=== PATIENT | female | born 1970 | race Hispanic/Latino ===

== ENCOUNTER 2017-08-28 20:25 | Emergency (ER) | payer OTHER ==
[~2017-08-28] VITALS: Ht 137.2 cm; Wt 57.6 kg
[2017-08-28] MEDS ORDERED: IBUPROFEN 600 MG TAB PO STA (21:10)
[2017-08-28] MEDS ORDERED: ALBUTEROL/IPRATROPIUM 3 ML NEB NEB ONE (21:15)
[2017-08-28] MEDS ORDERED: SIMVASTATIN20 MG PO (21:44)
[2017-08-28] MEDS ORDERED: LEVOCETIRIZINE D5 MG (21:44)
[2017-08-28] MEDS ORDERED: METFORMIN HCL500 MG PO (21:44)
[2017-08-28] MEDS ORDERED: RANITIDINE HCL150 M1 (21:44)
[2017-08-28] MEDS ORDERED: GLIMEPIRIDE2 MG PO (21:44)
[2017-08-28] MEDS ORDERED: LOSARTAN POTASS25 MG PO (21:44)
[2017-08-28] MEDS ORDERED: ONGLYZA5 MG PO (21:44)
== END 2017-08-28 22:02 | disposition home or self-care (01) ==
LOC: FSED 20:25
DX: R05 Cough (principal); J32.9 Chronic sinusitis, unspecified; J00 Acute nasopharyngitis [common cold]; J04.0 Acute laryngitis; J98.01 Acute bronchospasm; E78.5 Hyperlipidemia, unspecified
CPT/HCPCS: 99283

== ENCOUNTER 2018-07-14 19:35 | Emergency (ER) | payer OTHER ==
[~2018-07-14] VITALS: Ht 139.7 cm; Wt 59.4 kg
[~2018-07-14 19:35] MED LIST: GLIMEPIRIDE2 MG PO; LEVOCETIRIZINE D5 MG; LOSARTAN POTASS25 MG PO; METFORMIN HCL500 MG PO; ONGLYZA5 MG PO; RANITIDINE HCL150 M1; SIMVASTATIN20 MG PO
--- OUTSIDE RECORDS SUMMARY | 2018-07-14 19:38 | XMS REPORT | CCD ---
Author Author Auto Generated Organization [facility] Address Unknown Phone Unavailable Care Team Providers Care Party Plan Sales Director Name Role Phone Fabian Ruiz CP Allergies, Adverse Reactions, Alerts Substance Reaction Status NKDA Active Medications Medication Instructions Start Date End Date Status [place] 5/325 oral 1 tab, Route: PO, Drug Form: TAB, 01/01/2012 01/01/2012 Completed tablet ONCE, Start date: 01/01/12 21:34:00, Stop date: 01/01/12 21:34:00 Vital Signs Most recent to oldest [Reference Range]: 1 Height 139.70 cm (01/01/2012 21:05:00) Weight 60.000 kg (01/01/2012 21:05:00)
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
--- OUTSIDE RECORDS SUMMARY | 2018-07-14 19:38 | XMS REPORT | Summary of Care ---
Author Author [facility] Address Unknown Phone Unavailable Encounter HQ Nubiantr_alikhari(FIN) [id number] Date(s): 09/16/17 - 09/17/[address], [address] [place] [address]- [phone] Vital Signs No data available for this section Problem List No data available for this section Allergies, Adverse Reactions, Alerts Substance Reaction Severity Status NKDA Active Medications FREESTYLE LITE TEST STRIP See Instructions, # 50 strip, Refill(s) 3, TEST BLOOD SUGAR ONCE DAILY, Pharmacy : [id number] Start Date: 09/18/17 Status: Ordered Results No data available for this section Immunizations No data available for this section Procedures Procedure Date Related Diagnosis Body Site Status section Completed Removal of gallbladder Completed Social History Social History Type Response Smoking Status Never smoker; Exposure to Tobacco Smoke None; Cigarette Smoking Last 365 Days No; Reg Smoking Cessation Counseling No entered on: 08/25/16 Assessment and Plan No data available for this section
[2018-07-14] MEDS ORDERED: KETOROLAC TROMETHAMINE 30 MG/ML VIAL IM ONE (21:15)
== END 2018-07-14 22:06 | disposition home or self-care (01) ==
LOC: FSED 19:35
DX: M25.512 Pain in left shoulder (principal); S43.422A Sprain of left rotator cuff capsule, initial encounter; X50.1XXA Overexertion from prolonged static or awkward postures, initial encounter; Y92.008 Other place in unspecified non-institutional (private) residence as the place of occurrence of the external cause; E11.9 Type 2 diabetes mellitus without complications
CPT/HCPCS: 99282; J1885

== ENCOUNTER 2019-01-01 19:53 | Emergency (ER) | payer OTHER ==
[~2019-01-01] VITALS: Ht 139.7 cm; Wt 59.0 kg
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
--- OUTSIDE RECORDS SUMMARY | 2019-01-01 19:55 | XMS REPORT | Summary of Care ---
Author Author [facility] Address Unknown Phone Unavailable Encounter HQ Wilderr_chaitanya(FIN) [id number] Date(s): 10/03/18 - 10/04/18 [facility] [address] [place] [address] 7581- [phone] Vital Signs No data available for this section Problem List No data available for this section Allergies, Adverse Reactions, Alerts No Known Medication Allergies Medications FREESTYLE LITE TEST STRIP FREESTYLE LITE TEST STRIP, See Instructions, TEST BLOOD SUGAR ONCE DAILY, # 100 strip, Refill(s) , [facility]acy: [id number] Start Date: 10/03/18 Status: Ordered Results No data available for [...]
[2019-01-01] MEDS ORDERED: KETOROLAC TROMETHAMINE 30 MG/ML VIAL ONE (20:23)
[2019-01-01] MEDS ORDERED: ONDANSETRON HCL 4 MG ORAL DISINTEGRATING TAB ONE (20:23)
[2019-01-01] MEDS ORDERED: HYDROCODONE/APAP 5MG-325MG TAB ONE (20:24)
[2019-01-01] MEDS ORDERED: KETOROLAC TROMETHAMINE 60 MG/2 ML VIAL IM ONE (20:30)
[2019-01-01] MEDS ORDERED: HYDROCODONE/APAP 5MG-325MG TAB PO ONE (20:30)
[2019-01-01] MEDS ORDERED: ONDANSETRON HCL 4 MG ORAL DISINTEGRATING TAB PO ONE (20:30)
--- NOTE | 2019-01-01 22:01 | Diagnostic Imaging Report ---
Lumbar Spine Radiographs: 3 views HISTORY: Pain. Left-sided back pain started some left hip goes down to leg COMPARISON: None available. DISCUSSION: Some of the osseous structures are partially obscured by stool and bowel gas. There are five non-rib bearing lumbar vertebral bodies. The alignment of the spine is within normal limits. No displaced fracture or compression deformity is identified. The coccyx is slightly posteriorly aligned relative to the sacrum, may be a variant or possibly due to remote injury. Disc Spaces: The disc spaces are well maintained. Mild disc osteophytes. Facets: Hypertrophic sclerotic facet arthropathy in the lower lumbar spine, worse on the left. Degenerative changes and osteophytes in the sacroiliac joints, worst on the left. IMPRESSION: No acute radiographic abnormality. Degenerative changes in the lower lumbar spine and sacroiliac joints, worse on the left. Signed by: Dario Mejia DO on 01/01/2019 9:58 PM
[2019-01-01 22:46] VITALS: BP 144/84
== END 2019-01-01 21:38 | disposition home or self-care (01) ==
LOC: FSED 19:53
DX: M54.42 Lumbago with sciatica, left side (principal); M51.16 Intervertebral disc disorders with radiculopathy, lumbar region; G89.29 Other chronic pain; E11.9 Type 2 diabetes mellitus without complications; E78.5 Hyperlipidemia, unspecified
CPT/HCPCS: 72100; 81003; 96372; 99283; J1885 ×2; Q0162

== ENCOUNTER 2019-03-28 18:32 | Emergency (ER) | payer OTHER ==
[~2019-03-28] VITALS: Ht 139.7 cm; Wt 59.0 kg
--- OUTSIDE RECORDS SUMMARY | 2019-03-28 18:35 | XMS REPORT ---
Author Author [facility] Address Unknown Phone Unavailable Care Team Providers Care Six Horse Hitch Driver Name Role Phone Gulshan VIGIL Unavailable Unavailable Problems This patient has no known problems. Allergies, Adverse Reactions, Alerts This patient has no known allergies or adverse reactions. Medications This patient has no known medications. Results Test Description Test Time Test Comments Text Results Atomic Results Result Comments L SPINE 2-3 VEWS - HOPD 2019-01-01 21:52:00 [place] [address] Patient Name: STEVO LUGO MR #: [id number] : 1970 Age/Sex: 48/F Req #: [id number] [facility] Physician: Ordered by: NEHAL VIGIL MD Report #: [id number] Location: [facility] Room/Bed: Procedure: [id number] HOPD/L SPINE 2-3 VEWS - HOPD Exam Date: 01/01/19 Exam Time: 2039 REPORT STATUS: Signed Lumbar Spine Radiographs: 3 views HISTORY: Pain. Left-sided back pain started some left hip goes down to leg COMPARISON: None available. DISCUSSION: Some of the osseous structures are partially obscured by stool and bowel gas. There are five non-rib bearing lumbar vertebral bodies. The alignment of the spine is within normal limits. No displaced fracture or compression deformity is identified. The coccyx is slightly posteriorly aligned relative to the sacrum, may be a variant or possibly due to remote injury. Disc Spaces: The disc spaces are well maintained. Mild disc osteophytes. Facets: Hypertrophic sclerotic facet arthropathy in the lower lumbar spine, worse on the left. Degenerative changes and osteophytes in the sacroiliac joints, worst on the left. IMPRESSION: No acute radiographic abnormality. Degenerative changes in the lower lumbar spine and sacroiliac joints, worse on the left. Signed by: Dario Mejia DO on 01/01/2019 9:58 PM Dictated By: DARIO MEJIA DO 57 Transcribed By: USHA on 01/01/192157 COPY TO: NEHAL VIGIL MD
[2019-03-28] MEDS ORDERED: AZITHROMYCIN250 MG PO (19:33)
[2019-03-28] MEDS ORDERED: VENTOLIN HFA18 GM PO (19:33)
--- NOTE | 2019-03-28 20:10 | Diagnostic Imaging Report ---
Examination: Single AP view of the chest. COMPARISON: None. INDICATION: Cough DISCUSSION: Lines/tubes: None. Lungs: The lungs are well inflated and clear. No pneumonia or pulmonary edema. Pleura: No pleural effusion or pneumothorax. Heart and mediastinum: The heart and the mediastinum are unremarkable. Bones and soft tissues: No acute bony abnormalities. IMPRESSION: 1. No acute cardiopulmonary abnormalities. Signed by: Dr. Lucien Jha M.D. on 03/28/2019 8:06 PM
--- NOTE | 2019-03-28 20:11 | Diagnostic Imaging Report ---
Exam: Left foot 3 views History: Pain Comparison: None. Findings: No fracture or malalignment. Joint spaces preserved. Calcaneal enthesophytes. Impression: No acute osseous abnormality Signed by: Dr. Lucien Jha M.D. on 03/28/2019 8:07 PM
[2019-03-28 21:09] VITALS: BP 147/88
== END 2019-03-28 21:11 | disposition home or self-care (01) ==
LOC: FSED 18:32
DX: R05 Cough (principal); J20.9 Acute bronchitis, unspecified; M79.672 Pain in left foot; E11.9 Type 2 diabetes mellitus without complications
CPT/HCPCS: 36415; 71045; 80053; 82948; 85025; 85379; 93005; 99283

== ENCOUNTER 2019-12-02 20:06 | Emergency (ER) | payer OTHER ==
[~2019-12-02] VITALS: Ht 139.7 cm; Wt 59.0 kg
[~2019-12-02 20:06] MED LIST changes: +AZITHROMYCIN250 MG PO; +VENTOLIN HFA18 GM PO
[2019-12-02] MEDS ORDERED: ACETAMINOPHEN 325 MG TAB ONE (20:33)
[2019-12-02] MEDS ORDERED: ACETAMINOPHEN 325 MG TAB PO ONE (20:35)
[2019-12-02 21:03] LABS: ALANINE AMINOTRANSFERASE 38 IU/L (0-55); ALBUMIN/GLOBULIN RATIO 0.7 (0.8-2.0); ALKALINE PHOSPHATASE 94 IU/L (40-150); ANION GAP 17.5 mmol/L (8-16); BLOOD UREA NITROGEN 10 mg/dL (7-26); BUN/CREATININE RATIO 12 (6-25); CALCIUM 8.8 mg/dL (8.4-10.2); CARBON DIOXIDE 22 mmol/L (22-29); CHLORIDE 95 mmol/L (98-107); CREATINE KINASE 54 IU/L (29-168); CREATININE, SERUM 0.83 mg/dL (0.57-1.11); EST GLOMERULAR FILTRATION RATE > 60 ML/MIN (60-); GLUCOSE 299 mg/dL (74-118); POTASSIUM 3.5 mmol/L (3.5-5.1); SODIUM 131 mmol/L (136-145)
[2019-12-02 21:07] LABS: BASOPHILS % 0.2 % (0.0-1.0); HEMATOCRIT 36.7 % (34.2-44.1); HEMOGLOBIN 12.3 g/dL (12.0-16.0); LYMPHOCYTES # (AUTO) 1.1 (1.0-3.2); LYMPHOCYTES % 10.3 % (18.0-39.1); MEAN CORPUSCULAR HEMOGLOBIN 27.8 pg (28-32); MEAN CORPUSCULAR HGB CONC 33.5 g/dL (31-35); MEAN CORPUSCULAR VOLUME 82.8 fL (81-99); MONOCYTES # (AUTO) 0.4 (0.2-0.8); MONOCYTES % 3.7 % (4.4-11.3); NEUTROPHILS # (AUTO) 8.8 (2.1-6.9); NEUTROPHILS % 84.7 % (38.7-80.0); PLATELET COUNT 413 x10e3/uL (140-360); RED BLOOD COUNT 4.43 x10e6/uL (3.6-5.1); RED CELL DISTRIBUTION WIDTH 13.6 % (11.7-14.4)
--- NOTE | 2019-12-02 21:29 | Diagnostic Imaging Report ---
Examination: Single AP view of the chest. COMPARISON: AP chest 03/28/2019 INDICATION: Trouble breathing, COVID IMPRESSION: 1. Lines and Tubes: None 2. Lungs are mildly hypoinflated. Bilateral patchy interstitial and alveolar opacities likely representing multifocal pneumonia (including viral). No effusion. 3. Cardiomediastinal silhouette is normal. Pulmonary vasculature is normal. 4. No acute bony abnormalities. Signed by: Dr. Edmund Valdes M.D. on 12/02/2019 9:26 PM
--- NOTE | 2019-12-02 21:30 | Emergency Department Note ---
History of Present Illnes History of Present Illness Chief Complaint: COVID PUI History of Present Illness This is a 49 year old female arrives to ED with complaints of coughing or shortness of breath. Patient covid +. All of patient's extended family is covid positive with mother and sister hospitalized. Wildland Fire Fighter Required: No Onset (how long ago): day(s) Severity: mild Onset quality: gradual Timing of current episode: constant Progression: worsening Chronicity: new Context: Reports recent illness Relieving factors: none Past Medical/Family History Physician Review I have reviewed the patient's past medical and family history. Any updates have been documented here. Past Medical History Past Medical History: Diabetes, Migraines, Hyperlipedemia Other Medical History: hyperlipidemia migraine Past Surgical History: Cholecysctectomy, T&A, , Hernia Repair Other Surgery: BREAST CYST REMOVED Other Last Tetanus: unk Review of Systems Review of Systems Constitutional: Reports as per HPI, Reports diaphoresis, Reports fever EENTM: Reports no symptoms Cardiovascular: Reports no symptoms Respiratory: Reports as per HPI, Reports cough, Reports dyspnea Gastrointestinal: Reports no symptoms Genitourinary: Reports no symptoms Musculoskeletal: Reports no symptoms Integumentary: Reports no symptoms Neurological: Reports no symptoms Psychological: Reports no symptoms Endocrine: Reports no symptoms Hematological/Lymphatic: Reports no symptoms Review of other systems: All other systems negative Physical Exam Related Data Allergies: Coded Allergies: No Known Allergies (Unverified , 08/28/17) Vital signs reviewed: Yes Physical Exam CONSTITUTIONAL Constitutional: Present well-developed, Present well-nourished, Present obese, Present ill appearing HENT HENT: Present normocephalic, Present atraumatic, Present oropharynx clear/moist, Present nose normal HENT L/R: Present left ext ear normal, Present right ext ear normal EYES Eyes: Reports PERRL, Reports conjunctivae normal NECK Neck: Present ROM normal PULMONARY Pulmonary: Present effort normal, Present respiratory distress CARDIOVASCULAR Cardiovascular: Present regular rhythm, Present heart sounds normal, Present capillary refill normal, Present normal rate GASTROINTESTINAL Abdominal: Present soft, Present nontender, Present bowel sounds normal GENITOURINARY Genitourinary: Present exam deferred SKIN Skin: Present warm, Present dry MUSCULOSKELETAL Musculoskeletal: Present ROM normal NEUROLOGICAL Neurological: Present alert, Present oriented x 3, Present no gross motor or sensory deficits PSYCHOLOGICAL Psychological: Present mood/affect normal, Present judgement normal Results Laboratory Lab results reviewed: Yes Laboratory comments Laboratory Tests Test 12/02/19 20:10 White Blood Count 10.38 x10e3/uL (4.8-10.8) Red Blood Count 4.43 x10e6/uL (3.6-5.1) Hemoglobin 12.3 g/dL (12.0-16.0) Hematocrit 36.7 % (34.2-44.1) Mean Corpuscular Volume 82.8 fL (81-99) Mean Corpuscular Hemoglobin 27.8 pg (28-32) Mean Corpuscular Hemoglobin Concent 33.5 g/dL (31-35) Red Cell Distribution Width 13.6 % (11.7-14.4) Platelet Count 413 x10e3/uL (140-360) Neutrophils (%) (Auto) 84.7 % (38.7-80.0) Lymphocytes (%) (Auto) 10.3 % (18.0-39.1) Monocytes (%) (Auto) 3.7 % (4.4-11.3) Eosinophils (%) (Auto) 0.0 % (0.0-6.0) Basophils (%) (Auto) 0.2 % (0.0-1.0) Neutrophils # (Auto) 8.8 (2.1-6.9) Lymphocytes # (Auto) 1.1 (1.0-3.2) Monocytes # (Auto) 0.4 (0.2-0.8) Eosinophils # (Auto) 0.0 (0.0-0.4) Basophils # (Auto) 0.0 (0.0-0.1) Absolute Immature Granulocyte (auto 0.11 x10e3/uL (0-0.1) Sodium Level 131 mmol/L (136-145) Potassium Level 3.5 mmol/L (3.5-5.1) Chloride Level 95 mmol/L (98-107) Carbon Dioxide Level 22 mmol/L (22-29) Anion Gap 17.5 mmol/L (8-16) Blood Urea Nitrogen 10 mg/dL (7-26) Creatinine 0.83 mg/dL (0.57-1.11) Estimat Glomerular Filtration Rate > 60 ML/MIN (60-) BUN/Creatinine Ratio 12 (6-25) Glucose Level 299 mg/dL (74-118) Lactic Acid Level 2.3 mmol/L (0.5-2.0) Calcium Level 8.8 mg/dL (8.4-10.2) Total Bilirubin 0.4 mg/dL (0.2-1.2) Aspartate Amino Transf (AST/SGOT) 39 IU/L (5-34) Alanine Aminotransferase (ALT/SGPT) 38 IU/L (0-55) Alkaline Phosphatase 94 IU/L (40-150) Creatine Kinase 54 IU/L (29-168) Creatine Kinase MB 0.10 ng/mL (0-5.0) Troponin I < 0.001 ng/mL (0-0.300) Total Protein 7.4 g/dL (6.5-8.1) Albumin 3.0 g/dL (3.5-5.0) Globulin 4.4 g/dL (2.3-3.5) Albumin/Globulin Ratio 0.7 (0.8-2.0) Coronavirus (PCR) Detected (NOTDETECTED) Imaging Imaging results reviewed: Yes Critical Care Time Total Critical Care Time (min): 65 Critical care time exclusive o: separately billable procedures Critcal care necessary due to: respiratory failure Assessment & Plan Medical Decision Making MDM 49-year-old female arrived to the ED for shortness of breath, patient is covid positive, patient arrived in a oxygen saturation of dyspnea percent on arrival on room air. Patient placed on nonrebreather with oxygen saturation improvement noted 100%. Patient's mother father daughter and extended family is Covid positive. Patient with a history of uncontrolled diabetes. Spoke to family at length as well as the patient about respiratory status and need for possible intubation. Patient expressed understanding. Patient given ceftriaxone and Zithromax and Decadron, spoke to patient's father Thai August the patient's condition high likelihood of mortality. Expressed understanding. Assessment & Plan Final Impression: (1) Acute respiratory disease due to COVID-19 virus Depart Disposition: TRANS TO OTHER [facility] Home Meds Active Scripts Albuterol Sulfate (VENTOLIN HFA) 18 Gm Hfa.aer.ad, 2 INH PO QID PRN for cough for 7 Days, #1 INH Prov:JOSEP ENCARNACION MD 03/28/19 Azithromycin (Z-ALESSANDRO) 250 Mg Tablet, 250 MG PO UD, #1 UDPKT Z-Pack Prov:JOSEP ENCARNACION MD 03/28/19 Reported Medications Ranitidine Hcl (RANITIDINE HCL) 150 Mg Capsule 08/28/17 Glimepiride (GLIMEPIRIDE) 2 Mg Tablet, 1 MG PO DAILY, TAB 08/28/17 Levocetirizine Dihydrochloride (LEVOCETIRIZINE DIHYDROCHLORIDE) 5 Mg Tablet 08/28/17 Losartan Potassium (LOSARTAN POTASSIUM) 25 Mg Tablet, PO DAILY 08/28/17 Saxagliptin Hcl (ONGLYZA) 5 Mg Tablet, PO DAILY 08/28/17 Simvastatin (SIMVASTATIN) 20 Mg Tablet, 20 MG PO 2100, EA 08/28/17 Metformin Hcl (METFORMIN HCL) 500 Mg Tablet, 1000 MG PO BID, #60 TAB 08/28/17 Medications in the ED Acetaminophen 975 mg STK-MED ONCE .ROUTE ; Start 12/02/19 at 20:33; Stop 12/02/19 at 20:27; Status DC MENDEZ ALBRECHT DO Dec 02, 2019 21:30
[2019-12-02] MEDS ORDERED: DEXAMETHASONE SOD PHOS 10 MG/1 ML VIAL IV ONE (21:45)
[2019-12-02] MEDS ORDERED: ALBUTEROL SULFATE HFA 8GM INHALATION AEROSOL INH ONE (22:57)
[2019-12-03] MEDS ORDERED: AZITHROMYCIN 500MG/NS 250 ML 250 ML IV SCH (09:00)
== END 2019-12-03 01:22 | disposition other institution (70) ==
LOC: ER 20:06
DX: U07.1 COVID-19 (principal); J06.9 Acute upper respiratory infection, unspecified; R50.9 Fever, unspecified; R06.02 Shortness of breath; E11.65 Type 2 diabetes mellitus with hyperglycemia
CPT/HCPCS: 36415; 71045; 80053; 82550; 82553; 82948; 83605; 84484; 85025; 87040; 87635; 99284; J0456

== ENCOUNTER 2022-07-22 09:07 | Emergency (ER) | payer OTHER ==
[~2022-07-22] VITALS: Ht 139.7 cm; Wt 57.2 kg
[2022-07-22] MEDS ORDERED: FLONASE ALLERG9.9 ML INH (10:49)
[2022-07-22] MEDS ORDERED: IBUPROFEN800 MG PO (10:49)
== END 2022-07-22 10:50 | disposition home or self-care (01) ==
LOC: ER 09:14
DX: R05.9 Cough, unspecified (principal); J20.9 Acute bronchitis, unspecified; J04.0 Acute laryngitis; J45.909 Unspecified asthma, uncomplicated; Z20.822 Contact with and (suspected) exposure to COVID-19
CPT/HCPCS: 71046; 83518; 87070; 99283; U0002